=== PATIENT | female | born 1955 | race Caucasian/White ===

== ENCOUNTER → 2016-08-10 | Outpatient (CLI) | payer OTHER | LOC: FIMAGING 09:24 | DX: Z12.31 Encounter for screening mammogram for malignant neoplasm of breast (principal) | CPT/HCPCS: G0202 ==

== ENCOUNTER → 2016-10-08 | Outpatient (CLI) | payer OTHER | LOC: CIMAGING 15:08 | PROVIDERS: ATTEND Family Medicine | DX: M79.89 Other specified soft tissue disorders (principal) | CPT/HCPCS: 76882-PO ==

== ENCOUNTER → 2017-05-12 | Outpatient (CLI) | payer OTHER | LOC: BRMIMAGING 09:28 | DX: Z13.820 Encounter for screening for osteoporosis (principal); M85.89 Other specified disorders of bone density and structure, multiple sites; N95.1 Menopausal and female climacteric states ==

== ENCOUNTER → 2017-08-11 | Outpatient (CLI) | payer OTHER | LOC: FIMAGING 08:32 | DX: Z12.31 Encounter for screening mammogram for malignant neoplasm of breast (principal) ==

== ENCOUNTER → 2018-09-01 | Outpatient (CLI) | payer OTHER | LOC: FIMAGING 12:11 | PROVIDERS: ATTEND Obstetrics & Gynecology Gynecology | DX: Z12.31 Encounter for screening mammogram for malignant neoplasm of breast (principal) ==

== ENCOUNTER → 2018-09-15 | Outpatient (CLI) | payer OTHER | LOC: EMCIMAGING 08:11 | PROVIDERS: ATTEND Obstetrics & Gynecology Gynecology | DX: R92.8 Other abnormal and inconclusive findings on diagnostic imaging of breast (principal) ==

== ENCOUNTER 2018-10-11 05:45 | Observation (INO) | payer OTHER ==
[2018-10-11] MEDS ORDERED: LIDOCAINE 1% 2 ML INJ ID PRN (06:03)
[2018-10-11] MEDS ORDERED: LR 1,000 ML IV ONE (06:03)
[2018-10-11] MEDS ORDERED: LIDOCAINE 1% 2 ML INJ ONE (06:05)
[2018-10-11] MEDS ORDERED: VASOPRESSIN 20 UNIT/ML VIAL ONE (06:30)
[2018-10-11] MEDS ORDERED: SCOPOLAMINE HYDROBROMIDE 1 MG/3 DAYS PATCH TD ONE (06:59)
[2018-10-11] MEDS ORDERED: MIDAZOLAM 2 MG/2 ML VIAL IVP ONE (07:00)
[2018-10-11] MEDS ORDERED: SCOPOLAMINE HYDROBROMIDE 1 MG/3 DAYS PATCH TD SCH (07:00)
[2018-10-11] MEDS ORDERED: PROPOFOL/EMULSION 500 MG/50 ML BOTTLE IV ONE (07:09)
[2018-10-11] MEDS ORDERED: KETOROLAC 30 MG/1 ML SDV ONE (07:09)
[2018-10-11] MEDS ORDERED: morphINE PF 5 MG/10 ML INJ ONE (07:09)
[2018-10-11] MEDS ORDERED: ONDANSETRON 4 MG/2 ML VIAL ONE ×2 (07:09→09:58)
[2018-10-11] MEDS ORDERED: ROCURONIUM 50 MG/5 ML VIAL ONE (07:09)
[2018-10-11] MEDS ORDERED: DEXAMETHASONE 4 MG/ML VIAL ONE (07:09)
[2018-10-11] MEDS ORDERED: SUCCINYLCHOLINE CHLORIDE 200 MG/10 ML SYR IVP ONE (07:09)
[2018-10-11] MEDS ORDERED: fentaNYL 100 MCG/2 ML INJ ONE (07:09)
[2018-10-11] MEDS ORDERED: LIDOCAINE 2% 5 ML SDV ONE (07:10)
[2018-10-11] MEDS ORDERED: ceFAZolin 2 GM/DEXTROSE 100 ML IV ONE (07:18)
[2018-10-11] MEDS ORDERED: CEFAZOLIN 2 GM/DEXTROSE/100 ML BAG IV ONE (07:18)
[2018-10-11] MEDS ORDERED: BUPIVACAINE/DEXTROSE 7.5MG/ML 2 ML SPINAL AMP SP ONE (07:20)
[2018-10-11] MEDS ORDERED: NALOXONE HCL 0.4 MG/ML INJ IVP PRN ×2 (07:57→09:03)
[2018-10-11] MEDS ORDERED: ONDANSETRON 4 MG/2 ML VIAL IVP PRN ×2 (07:57→09:03)
[2018-10-11] MEDS ORDERED: ePHEDrine SULFATE 25 MG/5 ML SYR ONE (08:16)
[2018-10-11] MEDS ORDERED: fentaNYL 100 MCG/2 ML INJ IVP PRN (09:03)
[2018-10-11] MEDS ORDERED: SUGAMMADEX SODIUM 200 MG/2 ML VIAL IVP ONE (09:03)
[2018-10-11] MEDS ORDERED: LR 500 ML IV PRN (09:03)
[2018-10-11] MEDS ORDERED: ALBUTEROL 3 ML DEYVIAL IH PRN (09:03)
[2018-10-11] MEDS ORDERED: HYDROmorphONE/DILAUDID 1 MG/ML INJ IVP PRN (09:03)
[2018-10-11] MEDS ORDERED: MEPERIDINE 25 MG/0.5 ML AMP ONE (10:20)
[2018-10-11] MEDS ORDERED: HYDROCODONE/APAP 5/325 TAB PO PRN (10:28)
[2018-10-11] MEDS ORDERED: ONDANSETRON DISINTEGRATING 4 MG TAB PO PRN (10:28)
[2018-10-11] MEDS ORDERED: MEPERIDINE 25 MG/0.5 ML AMP IVP PRN (10:30)
[2018-10-11] MEDS ORDERED: LR 1,000 ML IV SCH (10:30)
[2018-10-11] MEDS: KETOROLAC 30 MG/1 ML SDV IVP PRN ×2 (15:40→21:36)
[2018-10-11] MEDS ORDERED: PROMETHAZINE HCL 25 MG/ML INJ IVP ONE (18:00)
[2018-10-12] MEDS: KETOROLAC 30 MG/1 ML SDV IVP PRN (03:55)
[2018-10-14] MEDS ORDERED: PATCH REMOVAL 1 EA PATCH TD SCH (07:01)
== END 2018-10-12 12:45 | disposition home or self-care (01) ==
DX: N80.0 Endometriosis of uterus (principal); N95.0 Postmenopausal bleeding
CPT/HCPCS: 58571; G0378